=== PATIENT | male | born 1950 | race Caucasian/White ===

== ENCOUNTER → 2016-11-12 | Outpatient (CLI) | payer MEDICARE, OTHER ==
[~2016-11-12] MED LIST: ASPIRIN ADULT L81 M2 PO; THE MEDICINE S300 MG PO
[2016-11-12 10:05] LABS: BUN 14 mg/dL (7-18)
[2016-11-12 10:07] LABS: GFR (ESTIMATED) 96 ML/MIN (>60)
--- NOTE | 2016-11-14 09:51 | RADIOLOGY REPORT PS360 ---
MRI-ORBIT,FACE,NECK W/WO CLINICAL INDICATION: NEOPLASM OF UNCERTAIN BEHAVIOR PAROTID GLAND Numbness and tingling left side of face COMPARISON: None TECHNIQUE: Routine multiplanar multiecho sequences are performed without and with contrast. FINDINGS: The nasopharynx has an unremarkable appearance. There is an 8 mm area of decreased T1 signal and slight increased T2 signal involving the inferior medial aspect of the left parotid gland. This does not appear to enhance. This could represent small lymph node. No other significant anomalies are evident. The epiglottis, glottic region, and thyroid are unremarkable. No abscess. IMPRESSION: 8 mm fairly well-defined nodule involving left parotid gland inferiorly and could be due to small lymph node. A small Warthin's tumor for pleomorphic adenoma also included in the differential diagnosis. Ultrasound may provide further detail.
== END ==
LOC: RAD 09:41
PROVIDERS: Family Medicine
DX: D37.030 Neoplasm of uncertain behavior of the parotid salivary glands (principal); K11.8 Other diseases of salivary glands
CPT/HCPCS: A9576